=== PATIENT | female | born 1955 | race Caucasian/White ===

== ENCOUNTER 2022-04-20 07:48 | Outpatient (CLI) | payer BC | END 2022-04-20 07:49 | disposition home or self-care (01) | LOC: CSHMAMMO 07:48 | PROVIDERS: ATTEND Obstetrics & Gynecology | DX: Z12.31 Encounter for screening mammogram for malignant neoplasm of breast (principal); Z80.3 Family history of malignant neoplasm of breast | CPT/HCPCS: 77063; 77067 ==

== ENCOUNTER 2023-04-20 08:40 | Outpatient (CLI) | payer BC | END 2023-04-20 08:41 | disposition home or self-care (01) | LOC: CSHMAMMO 08:40 | PROVIDERS: ATTEND Obstetrics & Gynecology | DX: Z12.31 Encounter for screening mammogram for malignant neoplasm of breast (principal) | CPT/HCPCS: 77063; 77067 ==

== ENCOUNTER 2024-04-24 07:59 | Outpatient (CLI) | payer BC | END 2024-04-24 08:00 | disposition home or self-care (01) | LOC: CSHMAMMO 07:59 | PROVIDERS: ATTEND Obstetrics & Gynecology | DX: Z12.31 Encounter for screening mammogram for malignant neoplasm of breast (principal) | CPT/HCPCS: 77063; 77067 ==

== ENCOUNTER 2025-05-08 09:24 | Outpatient (CLI) | payer BC | END 2025-05-08 09:25 | disposition home or self-care (01) | LOC: CSHMAMMO 09:24 | PROVIDERS: ATTEND Obstetrics & Gynecology | DX: N64.89 Other specified disorders of breast (principal) | CPT/HCPCS: G0279 ==